=== PATIENT | female | born 1980 | race African-American/Black ===

== ENCOUNTER 2017-05-29 11:20 | Emergency (ER) | payer OTHER ==
[2017-05-29] MEDS ORDERED: Albuterol Sulfate 2.5 mg/0.5 ml Neb ONE (11:47)
[2017-05-29] MEDS ORDERED: Albuterol Sulfate 2.5 mg/3 ml Neb ONE (11:47)
[2017-05-29 11:59] LABS: pH, Arterial 7.42 (7.35-7.45)
[2017-05-29 12:00] LABS: Actual Bicarbonate (HCO3a) 26.9 mEq/L (22-26); Analyzer IN Cardio ER; Base Excess (BEa) 2.2 mEq/L (0 (+/-) 2.5); CO2 Tension 42.2 mmHg (35.0-45.0); Calcium, Ionized 1.2 mmol/L (1.12-1.30); Hematocrit-ABG 39.5 % (36.0-47.0); Hemoglobin (Hb) 11.8 g/dL (12.0-16.0); O2 Tension (PaO2) 79.8 mmHg (80.0-100.0); Puncture Site RRA
[2017-05-29 12:01] LABS: #Basophils 0.1 thou/uL (0.0-0.2); #Eosinphils 0.1 thou/uL (0.0-0.7); #Lymphocytes 1.4 thou/uL (1.20-3.40); #Monocytes 0.5 thou/uL (0.11-0.59); #Neutrophils 3.8 thou/uL (1.40-6.50); %Basophils 1.2 % (0.0-1.0); %Eosinophils 2.2 % (0.0-10.0); %Lymphocytes 23.5 % (21.0-51.0); %Monocytes 7.8 % (0.0-10.0); %Neutrophils 65.3 % (42.0-75.0); Hemoglobin 12.1 g/dL (12.0-16.0); Mean Corpuscular HGB CONC 31.3 g/dL (32.0-36.0); Mean Corpuscular Hemoglobin 25.2 pg (27.0-31.0); Mean Corpuscular Volume 80.5 fl (81.0-99.0); Mean Platelet Volume 9.1 fL (7.4-10.4); Platelet Count 231 thou/uL (130-400); RBC Distribution Width 14.2 % (11.5-14.5); Red Blood Cell (RBC) Count 4.81 mill/uL (4.20-5.40); White Blood Cell (WBC) Count 5.7 thou/uL (4.8-10.8)
[2017-05-29] MEDS ORDERED: Dexamethasone 4 mg/ml Vial ONE (12:10)
[2017-05-29] MEDS ORDERED: Magnesium Sulfate 2 GM/100 ML BAG ONE (12:10)
[2017-05-29] MEDS ORDERED: Ondansetron HCl/PF 4 MG/2 ML Vial ONE (12:10)
--- NOTE | 2017-05-29 12:23 | RAD ---
AP VIEW CHEST: Date: 05/29/17 HISTORY: 31-year-old with history of chest pain. FINDINGS: Comparison made to previous exam from 11/02/11. AP view of chest demonstrates some mild cardiomegaly. Mild pulmonary vascular congestion is seen. No evidence of effusions, pneumonia, or pneumothorax seen. IMPRESSION: Unremarkable AP view of chest. POS: [facility]
[2017-05-29 12:28] LABS: CKMB 1.2 ng/mL (0-6.6); Troponin I Less than 0.010 ng/mL (< 0.028)
[2017-05-29 12:29] LABS: ALT (SGPT) 28 U/L (8-55); AST (SGOT) 32 U/L (5-34); Alkaline Phosphatase 61 U/L (40-150); Anion Gap 13 mmol/L (10-20); BUN (Urea Nitrogen) 11 mg/dL (7.0-18.7); Bilirubin, Total 0.5 mg/dL (0.2-1.2); CK (CPK) 130 U/L (29-168); Calc. Creatinine Clearance 0 mL/min (70-130); Calcium 9.6 mg/dL (7.8-10.44); Carbon Dioxide 25 mmol/L (22-29); Chloride 102 mmol/L (98-107); Estimated GFR-MDRD Greater than 90; Globulin 3.8 g/dL (2.4-3.5); Glucose 144 mg/dL (70-105); Lipase 15 U/L (8-78); Potassium 4.2 mmol/L (3.5-5.1); Protein, Total 7.8 g/dL (6.0-8.3); Sodium 136 mmol/L (136-145)
[2017-05-29] MEDS ORDERED: Acetaminophen 500 MG TAB ONE (12:45)
[2017-05-29] MEDS ORDERED: Lorazepam 2 MG/ML VIAL ONE (13:22)
[2017-05-29 14:48] LABS: Bilirubin Negative (Negative); Blood, Urine Negative (Negative); Clarity CLOUDY (Clear); Glucose, Urine (Dipstick) Negative (Negative); Leukocyte Negative (Negative); Nitrite Negative (Negative); Protein, Urine (Dipstick) Negative (Neg-Trace); Specific Gravity, Urine 1.021 (1.002-1.036); pH, Urine 6.5 (5.0-9.0)
== END 2017-05-29 14:36 | disposition home or self-care (01) ==
LOC: ERS 11:20
DX: J45.901 Unspecified asthma with (acute) exacerbation (principal); E66.9 Obesity, unspecified; D50.9 Iron deficiency anemia, unspecified; Z79.899 Other long term (current) drug therapy
CPT/HCPCS: 71045; 80053; 81003; 82553; 82805; 83605; 83690; 83880; 84484; 85025; 85379; 87040; 87804; 93005; 94644; 96361; 96365; 96366; 96375; J1100; J1956; J2060; J2405; J3475; J7611; J7620

== ENCOUNTER 2017-09-13 15:33 | Emergency (ER) | payer SELFPAY | END 2017-09-13 16:05 | disposition home or self-care (01) | LOC: ERS 15:33 | DX: G56.03 Carpal tunnel syndrome, bilateral upper limbs (principal); D64.9 Anemia, unspecified; E61.1 Iron deficiency; E66.9 Obesity, unspecified; J45.909 Unspecified asthma, uncomplicated; Z79.899 Other long term (current) drug therapy | CPT/HCPCS: 99283 ==

== ENCOUNTER 2018-04-29 10:06 | Outpatient (CLI) | payer OTHER ==
--- NOTE | 2018-04-29 11:24 | RAD ---
2 VIEWS LUMBAR SPINE: Date: 04/29/18 HISTORY: Disability examination. COMPARISON: None. FINDINGS: Two views of the lumbar spine demonstrate five lumbar-type vertebral bodies. Vertebral body height is maintained. No malalignment or fracture. Disc space heights are preserved. IMPRESSION: Unremarkable lumbar spine 2 views. POS: [facility]
== END 2018-04-29 10:07 | disposition home or self-care (01) ==
LOC: BICRAD 10:06
PROVIDERS: ATTEND Internal Medicine
DX: Z02.71 Encounter for disability determination (principal)
CPT/HCPCS: 72100

== ENCOUNTER 2018-05-27 09:08 | Outpatient (CLI) | payer MEDICAID ==
--- NOTE | 2018-06-01 13:23 | MMO ---
Bilateral MAMMO Bilat Screen DDI. CLINICAL HISTORY: Patient is 38 years old and is seen for screening. The patient has no family history of breast cancer. The patient has no personal history of cancer. VIEWS: The views performed were: bilateral craniocaudal and bilateral mediolateral oblique. This study has been interpreted with the assistance of computer-aided detection. MAMMOGRAM FINDINGS: There are scattered fibroglandular densities. There are no suspicious masses, calcifications or areas of architectural distortion. IMPRESSION: THERE IS NO MAMMOGRAPHIC EVIDENCE OF MALIGNANCY. A ROUTINE FOLLOW-UP MAMMOGRAM IN 1 YEAR IS RECOMMENDED. ACR BI-RADS Category 1 - Negative MAMMOGRAPHY NOTE: 1. A negative mammogram report should not delay a biopsy if a dominant of clinically suspicious mass is present. 2. Approximately 10% to 15% of breast cancers are not detected by mammography. 3. Adenosis and dense breasts may obscure an underlying neoplasm.
== END 2018-05-27 09:09 | disposition home or self-care (01) ==
LOC: BICMAMMO 09:08
PROVIDERS: ATTEND Family Medicine
DX: Z12.31 Encounter for screening mammogram for malignant neoplasm of breast (principal)
CPT/HCPCS: 77067

== ENCOUNTER 2018-06-18 07:47 | Day surgery (SDC) | payer OTHER ==
[2018-06-17 10:08] VITALS: BMI 404.0
[2018-06-18] MEDS ORDERED: PROPOFOL 200 MG/20 ML VIAL ONE (16:07)
[2018-06-18] MEDS ORDERED: Lidocaine 1% PF 5 ML VIAL ONE (16:07)
--- NOTE | 2018-06-18 18:46 | OP ---
DATE OF PROCEDURE: 06/18/2018 PROCEDURES PERFORMED: EGD, colonoscopy. PREPROCEDURE DIAGNOSES: 1. Rectal bleeding with normal hemoglobin. 2. Slight change in bowel function. 3. Remote family history of colorectal cancer in a cousin and an aunt with polyps. 4. Indigestion with chest pain and regurgitation at times. POSTPROCEDURE DIAGNOSES: 1. EGD with LA grade A reflux esophagitis and small erosion of the GE junction. 2. Otherwise normal EGD. 3. Normal colonoscopy except for a very small internal hemorrhoids, bleeding likely rectal outlet. RECOMMENDATIONS: 1. Most important for this patient is weight loss. She is morbidly obese. I have given her referral to a dietitian. 2. Anti-reflux regimen. 3. Stop ranitidine and start omeprazole. 4. Consider repeat colonoscopy in 10 years for screening purposes. 5. Follow up with primary physician as previously scheduled. ANESTHESIA: TIVA. PROCEDURE IN DETAIL: The patient was informed of the risks, benefits, and possible complications of endoscopy including perforation, reaction to medication, and aspiration. Informed consent was obtained. The patient was brought to the endoscopy suite, where she was sedated in a gradual fashion. Once she was comfortable, a bite block was placed inside the orifice. The endoscope was advanced through the esophagus, stomach, and second and third portion of the duodenum and slowly removed. The esophagus was notable for LA grade reflux esophagitis and a small erosion of the GE junction was noted. There was no ulcers, masses, or De La Cruz's. There was no hiatal hernia. The stomach was entered and found to be normal in forward and retroflexed views. The duodenum was normal at third portion. The scope was removed. The patient was turned to the room and a rectal examination was performed. The endoscope was advanced to the anal canal through the colon to the cecum. The prep was excellent. There was good visualization of the mucosa. The scope was removed. There was no mass, lesions, AV malformations, polyps, or diverticula. Retroflexed views revealed small internal hemorrhoids. This is likely a source of bleeding. There was no active bleeding at this time or stigmata to indicate high risk of bleeding. The scope was removed. The patient was brought to recovery in stable condition. Job ID: [id number]
== END 2018-06-18 13:33 | disposition home or self-care (01) ==
LOC: SDC 07:47 → EEVIPCON 07:47 → SDC 13:33
PROVIDERS: ATTEND Internal Medicine Gastroenterology
PROC: 0DJD8ZZ Inspection of Lower Intestinal Tract, Via Natural or Artificial Opening Endoscopic (ICD-10-PCS; principal; 2018-06-18)
PROC: 0DJ08ZZ Inspection of Upper Intestinal Tract, Via Natural or Artificial Opening Endoscopic (ICD-10-PCS; principal; 2018-06-18)
DX: K64.8 Other hemorrhoids (principal); K21.0 Gastro-esophageal reflux disease with esophagitis; K25.9 Gastric ulcer, unspecified as acute or chronic, without hemorrhage or perforation; E11.9 Type 2 diabetes mellitus without complications; G47.30 Sleep apnea, unspecified; J45.909 Unspecified asthma, uncomplicated; E66.01 Morbid (severe) obesity due to excess calories; Z68.44 Body mass index [BMI] 60.0-69.9, adult; Z79.84 Long term (current) use of oral hypoglycemic drugs; Z79.899 Other long term (current) drug therapy; Z88.1 Allergy status to other antibiotic agents; Z88.5 Allergy status to narcotic agent
CPT/HCPCS: J2001; J2704

== ENCOUNTER 2018-07-07 13:12 | Outpatient (CLI) | payer OTHER ==
--- NOTE | 2018-07-07 13:26 | RAD ---
PA AND LATERAL VIEWS OF THE CHEST: HISTORY: Dyspnea. FINDINGS: Comparison is made with the exam of 05/29/2017. The heart size is normal. The lungs are expanded without focal areas of consolidation, pneumothorace s, or pleural effusions. No acute osseous abnormalities are seen. IMPRESSION: No radiographic evidence of acute cardiopulmonary process. POS: [facility]
== END 2018-07-07 13:13 | disposition home or self-care (01) ==
LOC: RAD 13:12
PROVIDERS: ATTEND Internal Medicine Pulmonary Disease
DX: R06.00 Dyspnea, unspecified (principal)
CPT/HCPCS: 71046

== ENCOUNTER 2018-07-07 19:30 | Outpatient (CLI) | payer MEDICAID | END 2018-07-07 19:31 | disposition home or self-care (01) | LOC: SLEEPLAB 19:30 | PROVIDERS: ATTEND Family Medicine | DX: G47.30 Sleep apnea, unspecified (principal); E66.9 Obesity, unspecified; E11.9 Type 2 diabetes mellitus without complications; I10 Essential (primary) hypertension | CPT/HCPCS: 95811 ==

== ENCOUNTER 2018-10-31 21:23 | Observation (INO) | payer OTHER ==
[2018-10-31 21:56] LABS: #Lymphocytes 0.8 thou/uL (1.20-3.40); #Monocytes 0.2 thou/uL (0.11-0.59); #Neutrophils 6.9 thou/uL (1.40-6.50); %Eosinophils 0.2 % (0.0-10.0); %Lymphocytes 9.6 % (21.0-51.0); %Monocytes 2.9 % (0.0-10.0); %Neutrophils 87.3 % (42.0-75.0); Hemoglobin 8.7 g/dL (12.0-16.0); Mean Corpuscular HGB CONC 31.3 g/dL (32.0-36.0); Mean Corpuscular Hemoglobin 24.4 pg (27.0-31.0); Mean Corpuscular Volume 77.9 fL (78.0-98.0); Platelet Count 255 thou/uL (130-400); Red Blood Cell (RBC) Count 3.55 mill/uL (4.20-5.40); White Blood Cell (WBC) Count 7.9 thou/uL (4.8-10.8)
[2018-10-31 22:12] LABS: ALT (SGPT) 20 U/L (8-55); AST (SGOT) 23 U/L (5-34); Albumin 3.8 g/dL (3.5-5.0); Alkaline Phosphatase 78 U/L (40-150); Anion Gap 17 mmol/L (10-20); BUN (Urea Nitrogen) 10 mg/dL (7.0-18.7); Bilirubin, Total 0.5 mg/dL (0.2-1.2); Calc. Creatinine Clearance 0 mL/min (70-130); Calcium 9.1 mg/dL (7.8-10.44); Carbon Dioxide 20 mmol/L (22-29); Chloride 103 mmol/L (98-107); Estimated GFR-MDRD 76; Globulin 3.8 g/dL (2.4-3.5); Glucose 211 mg/dL (70-105); Potassium 4.2 mmol/L (3.5-5.1); Protein, Total 7.6 g/dL (6.0-8.3); Sodium 136 mmol/L (136-145)
--- NOTE | 2018-10-31 22:16 | RAD ---
EXAM: Two views chest PROVIDED CLINICAL HISTORY: Dyspnea COMPARISON: 07/07/2018. FINDINGS: Cardiac silhouette and pulmonary vasculature are within normal limits. There is suggestion of mild i ncrease in interstitial markings. Element of mild pulmonary edema is a possibility. There is no consolidation or pleural fluid seen. No other interval change. The osseous structures have a normal a ppearance. IMPRESSION: Mild interstitial prominence which may be accentuated by the technique of the exam. However, an eleme nt of mild pulmonary edema is a possibility. Clinical correlation is suggested.
[2018-11-01 00:37] LABS: Pregnancy Test - Urine (BHCG) Negative (Negative); Pregu Control Background? CLEAR/WHITE (CLR/WHITE); Pregu Control Bar Appear? YES (CONTROL BAR)
[2018-11-01 01:37] LABS: Troponin I Less than 0.010 ng/mL (< 0.028)
[2018-11-01] MEDS ORDERED: Acetaminophen 325 MG TAB PO PRN (04:02)
[2018-11-01] MEDS ORDERED: Ondansetron PF 4 MG/2 ML Vial IVP PRN (04:02)
[2018-11-01] MEDS ORDERED: Ondansetron ODT 4 MG TAB SL PRN (04:02)
[2018-11-01 04:06] VITALS: BMI 74.1
[2018-11-01] MEDS ORDERED: Nitroglycerin 0.4 MG TAB (25 Tab Bottle) PO PRN (08:05)
--- NOTE | 2018-11-01 08:07 | CT ---
PRELIMINARY REPORT/[facility]/EMERGENCY AFTER HOURS PROCEDURE: EXAM: CT Angiography Chest With Contrast EXAM DATE/TIME: 11/01/2018 2:38 AM CLINICAL HISTORY: 38 years old, female; Dyspnea and shortness of breath; Patient HX: Er 16. 38f: PT C/O of SOB which elias s been gradually worsening with exacerbation starting yesterday. Denies cp, cough, fever. States that she feels like she felt like she was going to pass out after walking to the bathroom and that she fe els short of breath when walking. TECHNIQUE: Imaging protocol: Computed tomographic angiography images of the chest with intravenous contrast usin g CT angiography protocol. 3D rendering: MIP reconstructed images were created and reviewed. COMPARISON: No relevant prior studies available. FINDINGS: Pulmonary arteries: No pulmonary emboli. Aorta: Unremarkable. No aortic aneurysm. No aortic dissection. Lungs: Patchy groundglass opacities scattered throughout the lungs bilaterally, likely multifocal pne umonitis/pneumonia. Minimal bibasilar atelectasis. Pleural space: Unremarkable. No pneumothorax. No pleural effusion. Heart: Unremarkable. No cardiomegaly. No pericardial effusion. Mediastinum: Small-sized hiatal hernia. Lymph nodes: Unremarkable. No enlarged lymph nodes. Bones/joints: Unremarkable. No acute fracture. Soft tissues: Unremarkable. IMPRESSION: 1. No pulmonary emboli. 2. Patchy groundglass opacities scattered throughout the lungs bilaterally, likely multifocal pneumon itis/pneumonia. Thank you for allowing us to participate in the care of your patient. Dictated and Authenticated by: Ghassan Garner MD 11/01/2018 2:55 AM Central Time ([place] & [place]) FINAL REPORT CTA CHEST WITH 3D VOLUME RENDERING WITH CONTRAST: FINDINGS/IMPRESSION: Report is in agreement with the above-provided preliminary interpretation. 1. No evidence of acute pulmonary embolus. 2. Nonspecific patchy ground-glass opacity of the lungs bilaterally. This could be on the basis of edema, atypical pneumonia, or other inflammatory process. Recommend clinical correlation. POS: [place]
[2018-11-01] MEDS: Enoxaparin Sodium 40 MG/0.4 ML SYRINGE SC SCH (09:44)
[2018-11-01] MEDS ORDERED: PROVENTIL INHALER 6.7 G (200 INHALATIONS) INH PRN (14:16)
[2018-11-01] MEDS ORDERED: HumaLOG 300 UNITS/3 ML VIAL SC PRN (14:17)
[2018-11-01] MEDS ORDERED: Dextrose 50% Abboject 50 ML SYRINGE SLOW IVP PRN (14:17)
[2018-11-01] MEDS ORDERED: Dextrose 5% in Water 1,000 ML IV PRN (14:17)
[2018-11-01] MEDS ORDERED: Ipratropium Bromide 2.5 ml Neb NEB PRN (14:48)
[2018-11-01 15:35] LABS: Reticulocyte Count 3.7 % (0.5-1.5)
[2018-11-01 15:43] LABS: Hemoglobin A1c 6.2 % (4.0-6.0)
[2018-11-01 16:00] LABS: Iron 34 ug/dL (50-170); Iron Binding Capacity, Total 375 mcg/dL (265-497)
[2018-11-01] MEDS ORDERED: Furosemide 40 MG/4 ML VIAL SLOW IVP SCH (16:15)
[2018-11-01] MEDS ORDERED: Metoprolol Tartrate 25 MG TAB PO SCH (16:45)
[2018-11-01] MEDS ORDERED: metFORMIN 500 MG TAB PO PRN (17:00)
[2018-11-01] MEDS ORDERED: SYMBICORT INH SCH (21:00)
[2018-11-01] MEDS ORDERED: Famotidine 20 MG TAB PO SCH ×2 (21:00→23:30)
[2018-11-01] MEDS: Metoprolol Tartrate 25 MG TAB PO SCH (21:11)
--- NOTE | 2018-11-01 22:13 | HP ---
CHIEF COMPLAINT: Shortness of breath, palpitations. HISTORY OF PRESENT ILLNESS: The patient is a 38-year-old female with severe obesity and sleep apnea, who presents to the hospital with complaints of chest pain and palpitations and shortness of breath x2 days. The patient states that on Friday when she was walking from the store to the car, she got very short of breath to the point that she had to stop and catch her breath. She also felt her heart beat was really fast. The patient at this time rested and her shortness of breath improved and she went on her ways. However, yesterday, she had similar symptoms which concerned her, so she came into the ER for further evaluation. The patient during the first episode felt that she possibly was going to pass out, however, never did pass out. She denies any recent fevers or chills, any nausea, vomiting or diarrhea, any chest pain or chest pressure. She did complain of some ankle swelling at times. She has been started on a BiPAP about 3 weeks ago per her. The patient also states that she takes metformin as needed when her sugars are of certain numbers. PAST MEDICAL HISTORY: As of the following. She has a history of diabetes, asthma, non-insulin diabetic type 2, sleep apnea. PAST SURGICAL HISTORY: She has had a and appendectomy. ALLERGIES: SHE IS ALLERGIC TO ULTRAM AND MACROBID. MEDICATIONS: She takes only metformin as needed. SOCIAL HISTORY: She drinks occasional alcohol. No history of smoking, drug use. She is a full code and lives with her . REVIEW OF SYSTEMS: All negative except for the ones mentioned above in the HPI. FAMILY HISTORY: Some history of heart disease and cancer. LABORATORY RESULTS: WBCs of 7.9, hemoglobin of 8.7, MCV of 77.9, platelets of 255, reticulocyte count of 3.7. Chemistry; sodium of 136, potassium 4.2, BUN 10, creatinine 0.98, glucose of 211. She did have a CTA which did not indicate any acute pulmonary embolism, however, did have some nonspecific patchy ground-glass opacity in her lungs bilaterally. PHYSICAL EXAMINATION: VITAL SIGNS: Temperature of 98.1, 96, 20, 97% on room air, 177/93. GENERAL: She is awake, alert, and oriented x3. HEENT: Normocephalic, atraumatic. No lymphadenopathy noted. Pupils are equal and reactive to light. CV: S1 and S2 present. No murmurs, rubs, or gallops. LUNGS: Clear to auscultation. No rhonchi or wheezes noted. ABDOMEN: Soft and obese. Bowel sounds are present x2. EXTREMITIES: No edema. Pedal pulses are present x2. NEUROVASCULAR: No focal deficits noted. SKIN: No cuts, lesions or bruises noted. ASSESSMENT AND PLAN: The patient is a 38-year-old female who presents to the hospital with shortness of breath and palpitations. 1. Shortness of breath, possibly cardiac versus bronchitis versus pneumonia. I will order an echocardiogram. Initially, I did want to order a stress test on her. However, given her weight, she is unable to undergo a stress test. She did have a CTA, which was negative for pulmonary embolism. I will go ahead and treat her prophylactically with doxycycline and will also give her a dose of Lasix. I will check a BNP on her. She did get tachycardic upon ambulation. However, she never dropped her oxygen saturations. I will wait for the echo and maybe put her on some medications for her tachycardia. I am not sure if her tachycardia is secondary to some volume overload versus maybe infectious etiology in her lungs. If I have to, I will also consult Cardiology. 2. Obesity. I did discuss weight loss. The patient understands that and she wants to make some changes in her life. 3. Diabetes. I explained to her that metformin cannot be taken as needed. It has to be taken all the time and I will check a hemoglobin A1c on her. 4. Elevated blood pressure. The patient states that she has never really been diagnosed with hypertension. However, upon looking at her blood pressure, she has been running a little bit high on the higher side. This could be just due to anxiety of being in the hospital. However, I will continue to monitor. 5. Deep venous thrombosis prophylaxis. I will put the patient on some SCDs and Lovenox. Job ID: [id number]
[2018-11-01] MEDS ORDERED: Montelukast Sodium 4 mg Chewable Tablet PO SCH (23:30)
[2018-11-01] MEDS ORDERED: Brimonidine Tartrate 0.2% Ophth Soln 5 ml Bottle EA EYE SCH (23:30)
[2018-11-01] MEDS: tiZANidine HCl 4 MG TAB PO PRN (23:42)
[2018-11-02] MEDS: Mometasone/Formoterol 120 PUFF INHALER INH SCH ×3 (06:44→19:05)
[2018-11-02] MEDS: Enoxaparin Sodium 40 MG/0.4 ML SYRINGE SC SCH (09:03)
[2018-11-02] MEDS: Metoprolol Tartrate 25 MG TAB PO SCH ×2 (09:03→20:12)
[2018-11-02] MEDS: Brimonidine Tartrate 0.2% Ophth Soln 5 ml Bottle EA EYE SCH ×3 (09:04→20:13)
[2018-11-02] MEDS ORDERED: IRON SUCROSE COMPLEX 100 MG/5 ML SLOW IVP SCH (09:30)
[2018-11-02] MEDS ORDERED: Furosemide 40 MG/4 ML VIAL SLOW IVP SCH ×2 (14:42→14:45)
--- NOTE | 2018-11-02 14:46 | PDOC.HOSPP ---
- Subjective Encounter Date: 11/02/18 Encounter Time: 14:43 Subjective: pt up in bed feels sob. she feels better than yestarday - Objective Vital Signs & Weight: Vital Signs (12 hours) Temp Pulse Resp BP BP Pulse Ox 11/02/18 11:50 98.9 F 81 22 H 136/84 98 11/02/18 08:00 98.2 F 83 22 H 126/77 95 11/02/18 06:44 82 16 94 L 11/02/18 03:19 98.6 F 85 22 H 162/73 H 95 Weight Weight 432 lb I&O: 11/01/18 11/02/18 11/03/18 06:59 06:59 06:59 Intake Total 1130 Balance 1130 Result Diagrams: 10/31/18 21:52 10/31/18 21:52 Additional Labs: Accuchecks 11/02/18 11/02/18 11/01/18 10:38 06:10 20:25 POC Glucose 105 124 H 123 H 11/01/18 17:29 POC Glucose 105 ROS - Review of Systems Respiratory: denies: cough, dry, shortness of breath, hemoptysis, SOB with excertion, pleuritic pain, sputum, wheezing, other Cardiovascular: denies: chest pain, palpitations, orthopnea, paroxysmal noc. dyspnea, edema, light headedness, other Gastrointestinal: denies: nausea, vomitting, abdominal pain, diarrhea, constipation, melena, hematochezia, other - Medication Medications: Active Medications Generic Name Dose Route Start Last Admin Trade Name Freq PRN Reason Stop Dose Admin Albuterol Sulfate 2 puff 11/01/18 14:16 11/02/18 00:01 Proventil Hfa INH 2 puff BID PRN Administration SOB &/or Wheezing Brimonidine Tartrate 1 drop 11/02/18 09:00 11/02/18 11:34 Alphagan 0.2% Ophth Soln EA EYE 1 drop Q12HR MATI Administration Enoxaparin Sodium 40 mg 11/01/18 09:00 11/02/18 09:03 Lovenox SC 40 mg 0900 MATI Administration Famotidine 20 mg 11/01/18 21:00 11/01/18 21:13 Pepcid PO 20 mg HS MATI Administration Doxycycline Hyclate 100 mg/ 100 mls @ 100 mls/hr 11/01/18 15:00 11/02/18 03: 07 Sodium Chloride IVPB 100 mls 0300,1500 MATI Administration Metformin HCl 500 mg 11/01/18 17:00 11/01/18 21:13 Glucophage PO 500 mg QPM-WM PRN Administration Hyperglycemia Metoprolol Tartrate 12.5 mg 11/01/18 21:00 11/02/18 09:03 Lopressor PO 12.5 mg BID MATI Administration Mometasone Furoate/Formoterol Fumar 2 puff 11/02/18 06:30 11/02/18 06:44 Dulera 200 Mcg/5 Mcg Inhaler INH 2 puff BID-RT MATI Administration Sodium Chloride 10 ml 11/01/18 09:00 11/02/18 09:03 Flush - Normal Saline IVF 10 ml Q12HR MATI Administration Tizanidine HCl 4 mg 11/01/18 14:16 11/01/18 23:42 Zanaflex PO 4 mg TID PRN Administration Muscle Spasm - Exam Neck: negative: supple, symmetric, no JVD, no thyromegaly, no lymphadenopathy, no carotid bruit, JVD Heart: negative: RRR, no murmur, no gallops, no rubs, normal peripheral pulses, irregular, diminshed peripheral pulses, murmur present, II/IV, III/IV Respiratory: negative: CTAB, no wheezes, no rales, no ronchi, normal chest expansion, no tachypnea, normal percussion, rales, rhonchi, tachypneic, wheezes Gastrointestinal: negative: soft, non-tender, non-distended, normal bowel sounds , no palpable masses, no hepatomegaly, no splenomegaly, no bruit, no guarding, no rigidity, tender to palpation, distended, diminished bowl sounds, voluntary guarding Hosp A/P (1) SOB (shortness of breath) Code(s): R06.02 - SHORTNESS OF BREATH Status: Acute (2) Obesity Code(s): E66.9 - OBESITY, UNSPECIFIED Status: Acute (3) Iron deficiency Code(s): E61.1 - IRON DEFICIENCY Status: Acute (4) Sleep apnea Code(s): G47.30 - SLEEP APNEA, UNSPECIFIED Status: Acute - Plan Not sure if her sob is due to volume overload vs pna vs multifactoral. i have put her on abx and lasix. her bnp and tsh normal. echo no acute process. cta negative for pe. she is anemic but this is not new. she has had a upper and lower done in 06/26. she is tachycardia with ambulation.
[2018-11-02] MEDS: tiZANidine HCl 4 MG TAB PO PRN (20:18)
[2018-11-02] MEDS ORDERED: Montelukast Sodium 4 mg Chewable Tablet PO SCH (21:00)
--- NOTE | 2018-11-03 01:10 | CON ---
DATE OF CONSULTATION: HISTORY: Gladys Live is a 38-year-old morbidly obese female, admitted with shortness of breath and chest discomfort. In June 2018, she had rectal bleeding, but was not anemic. She underwent EGD and colonoscopy by Dr. Doty. This revealed reflux esophagitis and small erosion at the GE junction. She also on colonoscopy had small internal hemorrhoids and bleeding was felt to be likely from the rectal outlet. It was recommended that she stop ranitidine and go on omeprazole for anti-reflux regimen. That medication is not amongst her medications at the time of admission. On October 30, she was walking to her car from a store, became very short of breath, had to stop to catch her breath. She also felt her heart beating rapidly and had chest pressure. She is uncertain how long that lasted. The next day, she had the same symptom and decided to come to the emergency room. She has been found to be anemic and tachycardic when she tries to get up and walk. Cardiac enzymes have been normal. PAST MEDICAL HISTORY: 1. Diabetes. 2. Asthma. 3. Obstructive sleep apnea, recently started BiPAP 3 weeks ago. PAST SURGICAL HISTORY: and appendectomy. MEDICATIONS: 1. Metformin 100 mg p.r.n. 2. Symbicort one puff b.i.d. 3. Albuterol 2 puffs b.i.d. p.r.n. 4. Ergocalciferol one tablet q.7 days. 5. Singulair 8 mg at bedtime. 6. Zanaflex 4 mg p.r.n. 7. Zantac 150 at bedtime, unknown last dose. ALLERGIES: ULTRAM AND MACROBID. SOCIAL HISTORY: She occasionally drinks alcohol. She does not smoke. REVIEW OF SYSTEMS: Unremarkable except as noted above. She states that she has very irregular periods and at times they are heavy. Last period was 2 months ago. PHYSICAL EXAMINATION: VITAL SIGNS: Blood pressure 172/94, 136/84; pulse 82. When she gets up to walk , her heart rate goes up to 140 to 150, sinus tachycardia. HEENT: PERRL. NECK: Supple. CHEST: Clear. CARDIAC: S1 and S2 normal without any S3, S4, or murmurs. ABDOMEN: Morbidly obese. Normal bowel sounds. No tenderness. EXTREMITIES: Reveal no clubbing, cyanosis, or edema.. NEUROLOGIC: Grossly intact. SKIN: Warm and dry. LABORATORY DATA: Stool for occult blood x1 is negative. Hemoglobin 8.7, hematocrit 27.7, white count 7900. Retic count 3.7, which is high. Immature retic fraction 0.537, which is high. D-dimer less than 0.27. Iron 34, TIBC 375, percent saturation 9. Cardiac enzymes x3 are normal. Sodium 136, potassium 4.6, chloride 103, carbon dioxide 20, BUN 10, and creatinine 0.98. IMPRESSION: 1. Exertional shortness of breath and chest pressure, probably related to her anemia. 2. GI workup in June 2018 when her CBC was normal, but she had some rectal bleeding. It was found that she had gastroesophageal erosion and was recommended that she be placed on proton pump inhibitor. Stool guaiacs have been negative x1. 3. Iron-deficiency anemia. She has received intravenous iron. 4. Diabetes. 5. Asthma. 6. Morbid obesity with weight of 432 pounds. It is of note that in June 2018, her weight was 365 and gained 67 pounds over the last 4 months. PLAN: She has been gently diuresed and placed on low-dose beta kevin. The beta kevin dose may need to be increased. She did receive intravenous iron for her iron deficiency anemia. I also would recommend placing her on a proton pump inhibitor as recommended by Dr. Doty after his EGD. From a Cardiology perspective, it will be difficult to gather any more information. Her weight is too great to consider a Lexiscan Cardiolite test with weight limit on the table of 350 pounds. Consideration could be given to cardiac catheterization, but she is a little above the weight limit for the table and at the present time, I do not have any direct evidence that she has coronary artery disease. Even if it was known that she has coronary artery disease, she is not a candidate for any type of coronary intervention, i.e., stent placement or bypass surgery with iron-deficiency anemia until that is corrected and exact cause is known. She does have somewhat heavy periods, but states she has not had one in 2 months. We will follow the patient with you. Job ID: [id number] [facility]
[2018-11-03] MEDS: Mometasone/Formoterol 120 PUFF INHALER INH SCH ×2 (07:24→17:57)
[2018-11-03] MEDS ORDERED: Iron Sucrose Complex 200 MG in Sodium Chloride 0.9% 250 ML 250 ML IVPB SCH ×2 (08:00→15:30)
[2018-11-03] MEDS: Brimonidine Tartrate 0.2% Ophth Soln 5 ml Bottle EA EYE SCH (08:36)
[2018-11-03] MEDS: Metoprolol Tartrate 25 MG TAB PO SCH (08:37)
[2018-11-03] MEDS: Enoxaparin Sodium 40 MG/0.4 ML SYRINGE SC SCH (08:43)
[2018-11-03] MEDS ORDERED: Furosemide 40 MG/4 ML VIAL SLOW IVP SCH (09:00)
[2018-11-03 12:32] VITALS: TEMP 98.7
--- NOTE | 2018-11-03 15:03 | PDOC.HOSPP ---
- Subjective Encounter Date: 11/03/18 Encounter Time: 15:01 Subjective: Ms. Live was seen today in follow-up of Shortness of breath. She continues to have some symptoms of dyspnea on exertion. She denies any chest pain. - Objective Vital Signs & Weight: Vital Signs (12 hours) Temp Pulse Resp BP BP Pulse Ox 11/03/18 12:02 98.7 F 76 20 116/66 96 11/03/18 07:44 98.1 F 83 20 114/61 96 11/03/18 07:30 96 11/03/18 04:05 97.9 F 80 18 118/61 96 Weight Weight 432 lb I&O: 11/02/18 11/03/18 11/04/18 06:59 06:59 06:59 Intake Total 1130 1300 Output Total 400 Balance 1130 900 Result Diagrams: 10/31/18 21:52 10/31/18 21:52 Hospitalist ROS - Medication Medications: Active Medications Generic Name Dose Route Start Last Admin Trade Name Freq PRN Reason Stop Dose Admin Albuterol Sulfate 2 puff 11/01/18 14:16 11/02/18 00:01 Proventil Hfa INH 2 puff BID PRN Administration SOB &/or Wheezing Brimonidine Tartrate 1 drop 11/02/18 09:00 11/03/18 08:36 Alphagan 0.2% Ophth Soln EA EYE 1 drop Q12HR MATI Administration Enoxaparin Sodium 40 mg 11/01/18 09:00 11/03/18 08:43 Lovenox SC 40 mg 0900 MATI Administration Furosemide 40 mg 11/03/18 09:00 11/03/18 08:36 Lasix SLOW IVP 40 mg DAILY MATI Administration Doxycycline Hyclate 100 mg/ 100 mls @ 100 mls/hr 11/01/18 15:00 11/03/18 14: 35 Sodium Chloride IVPB 100 mls 0300,1500 MATI Administration Metformin HCl 500 mg 11/01/18 17:00 11/01/18 21:13 Glucophage PO 500 mg QPM-WM PRN Administration Hyperglycemia Metoprolol Tartrate 12.5 mg 11/01/18 21:00 11/03/18 08:37 Lopressor PO 12.5 mg BID MATI Administration Mometasone Furoate/Formoterol Fumar 2 puff 11/02/18 06:30 11/03/18 07:24 Dulera 200 Mcg/5 Mcg Inhaler INH 2 puff BID-RT MATI Administration Montelukast Sodium 8 mg 11/02/18 21:00 11/02/18 20:12 Singulair Chewable PO 8 mg HS MATI Administration Pantoprazole Sodium 40 mg 11/02/18 21:00 11/03/18 08:37 Protonix PO 40 mg BID MATI Administration Sodium Chloride 10 ml 11/01/18 09:00 11/03/18 14:36 Flush - Normal Saline IVF 10 ml Q12HR MATI Administration Tizanidine HCl 4 mg 11/01/18 14:16 11/02/18 20:18 Zanaflex PO 4 mg TID PRN Administration Muscle Spasm - Exam Eye: PERRL, anicteric sclera Heart: RRR, no murmur, no gallops, no rubs, normal peripheral pulses Respiratory: CTAB (Distant heart sounds), no wheezes, no rales, no ronchi, normal chest expansion Gastrointestinal: soft, non-tender, non-distended, normal bowel sounds Extremities: no cyanosis, no clubbing, no edema Hosp A/P (1) Iron deficiency Code(s): E61.1 - IRON DEFICIENCY Status: Acute (2) SOB (shortness of breath) Code(s): R06.02 - SHORTNESS OF BREATH Status: Acute (3) Morbid obesity with BMI of 70 and over, adult Code(s): E66.01 - MORBID (SEVERE) OBESITY DUE TO EXCESS CALORIES; Z68.45 - BODY MASS INDEX (BMI) 70 OR GREATER, ADULT Status: Chronic (4) Diabetes mellitus type 2 in obese Code(s): E11.69 - TYPE 2 DIABETES MELLITUS WITH OTHER SPECIFIED COMPLICATION; E66.9 - OBESITY, UNSPECIFIED Status: Chronic - Plan * Patient is clinically stable * Dyspnea is likely from there severe anemia, and bronchitis, combined with her excessive weight. * Life threatening Obesity- will consult Vehicle [facility] Equipment [facility] , and I have offered brief counseling * She can be discharged home after the iron infusion
[2018-11-03 15:57] VITALS: BP 169/86
--- NOTE | 2018-11-03 21:52 | DIS ---
DATE OF ADMISSION: 11/01/2018 DATE OF DISCHARGE: 11/03/2018 DISCHARGE DISPOSITION: Home. PRIMARY DISCHARGE DIAGNOSES: 1. Dyspnea on exertion. 2. Symptomatic anemia due to iron deficiency anemia. 3. Morbid obesity. The patient has a BMI of 74.2. She is 5 feet 4 inches, 432 pounds. 4. Acute on chronic bronchitis. 5. Diabetes mellitus type 2. DISCHARGE MEDICATIONS: Include: 1. Lopressor 12.5 mg twice daily. 2. Doxycycline 100 mg twice a day. 3. Zantac 150 mg at bedtime. 4. Zanaflex 4 mg t.i.d. as needed. 5. Symbicort one puff twice daily. 6. Singulair 8 mg daily. 7. Metformin 750 mg extended release daily. 8. Drisdol 50,000 units one capsule every 7 days. 9. Alphagan 0.2% one drop in each eye q.12. 10. ProAir inhaler 2 puffs twice daily. CODE STATUS: Full code. ALLERGIES: TO NITROFURANTOIN AND TRAMADOL. PROCEDURES DONE DURING THE ADMISSION: The patient had a CT angiogram of the chest. There was no evidence of PE. There was some nonspecific patchy ground-glass opacities in both lungs. HOSPITAL COURSE: Ms. Live is a pleasant 38-year-old female, who presented to the emergency room complaining of shortness of breath especially on exertion. It was noted that she was anemic with a hemoglobin of 8.7 and low iron and relatively low ferritin levels. She does have a history of heavy menstrual cycles. She had a CT angiogram of the chest which was negative for PE and it was felt that the shortness of breath is likely multifactorial with regard to the symptomatic anemia, her excessive weight, as well as mild bronchitis. She was given a dose of IV iron during her hospital stay and also treated for the bronchitis with antibiotics, as well as neb treatments and long-acting beta-agonist. She did improve somewhat and was able to be discharged home. She was instructed on weight loss diet and had a nutrition or dietitian consult. She is subsequently being discharged home today to have close outpatient followup within 1 to 2 weeks. Job ID: [id number]
== END 2018-11-03 20:03 | disposition home or self-care (01) ==
LOC: ERS 21:23 → 2SW 11-01 04:02
PROVIDERS: ADMIT Hospitalist; ATTEND Hospitalist
DX: R06.09 Other forms of dyspnea (principal); J45.909 Unspecified asthma, uncomplicated; E11.9 Type 2 diabetes mellitus without complications; R03.0 Elevated blood-pressure reading, without diagnosis of hypertension; D50.9 Iron deficiency anemia, unspecified; G47.33 Obstructive sleep apnea (adult) (pediatric); J20.9 Acute bronchitis, unspecified; J42 Unspecified chronic bronchitis; E66.01 Morbid (severe) obesity due to excess calories; Z68.45 Body mass index [BMI] 70 or greater, adult; Z79.899 Other long term (current) drug therapy; Z88.1 Allergy status to other antibiotic agents; Z88.5 Allergy status to narcotic agent; Z99.89 Dependence on other enabling machines and devices
CPT/HCPCS: 36415; 36416; 71046; 71275; 80053; 81025; 82274; 82728; 83036; 83540; 83550; 83880; 84443; 84484; 85025; 85046; 85652; 86140; 93005; 93306; 94640; 94660; 94760; 96365; 96366; 96367; 96372; 96375; 96376; G0378; J1650; J1756; J1940; J3490; J7050; J7620

== ENCOUNTER 2019-04-15 07:19 | Day surgery (SDC) | payer OTHER ==
[2019-04-14 09:37] VITALS: BMI 72.1
[2019-04-15 08:39] LABS: #Eosinphils 0.1 thou/uL (0.0-0.7); #Lymphocytes 1.7 thou/uL (1.20-3.40); #Monocytes 0.5 thou/uL (0.11-0.59); #Neutrophils 3.6 thou/uL (1.40-6.50); %Basophils 0.7 % (0.0-1.0); %Eosinophils 1.8 % (0.0-10.0); %Lymphocytes 29.2 % (21.0-51.0); %Monocytes 7.7 % (0.0-10.0); %Neutrophils 60.7 % (42.0-75.0); Hemoglobin 11.6 g/dL (12.0-16.0); Mean Corpuscular HGB CONC 31.4 g/dL (32.0-36.0); Mean Corpuscular Hemoglobin 26.1 pg (27.0-31.0); Mean Platelet Volume 9.5 fL (7.4-10.4); Platelet Count 205 thou/uL (130-400); RBC Distribution Width 14.3 % (11.5-14.5); Red Blood Cell (RBC) Count 4.44 mill/uL (4.20-5.40); White Blood Cell (WBC) Count 5.9 thou/uL (4.8-10.8)
[2019-04-15] MEDS ORDERED: Lidocaine 1% w/Epinephrine 1:100K 20 ML VIAL ONE (09:43)
[2019-04-15] MEDS ORDERED: Fentanyl 100 MCG/2 ML VIAL ONE (09:45)
[2019-04-15] MEDS ORDERED: Midazolam HCl 2 mg/2 ml Vial ONE (09:45)
[2019-04-15] MEDS ORDERED: Propofol 500 MG/50 ML VIAL ONE (09:45)
[2019-04-15] MEDS ORDERED: Ondansetron PF 4 MG/2 ML Vial ONE (11:15)
--- NOTE | 2019-04-15 11:24 | OP ---
DATE OF PROCEDURE: 04/15/2019 PREOPERATIVE DIAGNOSIS: Left carpal tunnel syndrome. POSTOPERATIVE DIAGNOSIS: Left carpal tunnel syndrome. PROCEDURE PERFORMED: Left open carpal tunnel release. MEMBERSHIP SALES MANAGER: None. ANESTHESIOLOGIST: Maria Teresa Noland MD ANESTHESIA: The patient received a TIVA with 8 mL of lidocaine 1% with epinephrine. ESTIMATED BLOOD LOSS: Less than 10 mL. TOURNIQUET TIME: 5 minutes at 250 mmHg. ANTIBIOTICS: Ancef 2 g. COMPLICATIONS: None. HISTORY OF PRESENT ILLNESS: Calos is a pleasant 39-year-old female with bilateral carpal tunnel syndrome, left side she decided to have release. The patient is morbidly obese. I discussed the risks and benefits of the surgery to include, pain, scar, bleeding, infection, need for further surgery, damage to nerve, and loss of life or limb. She understood these increased risk because of morbid obesity. She elected to proceed. DESCRIPTION OF PROCEDURE: Time-out was performed designating the patient's left upper extremity as the operative site based on site, consents, and marking. After time-out, the patient's left upper extremity was prepped and draped in sterile fashion. Tourniquet was brought up and left for 5 minutes. We made an incision in the patient's flexor crease. I had injected about 6 mL of local just to give her pain control. I dissected down through the skin to the fat, came down through the palmar fascia, dissected through the transverse carpal ligament, completely released the nerve for complete release, ensured proximally and distally it had been released. Tourniquet was brought down after 5 minutes, controlled bleeding, closed with 4-0 nylon. The patient will be placed in a soft tissue dressing and remove it in about [address] a Velcro wrist splint over to protect herself. Follow up with me in 10 to 14 days to have sutures removed. Job ID: [id number] [facility]
== END 2019-04-15 11:53 | disposition home or self-care (01) ==
LOC: SDC 07:19
PROVIDERS: ATTEND Orthopaedic Surgery
PROC: 01N50ZZ Release Median Nerve, Open Approach (ICD-10-PCS; principal; 2019-04-15)
DX: G56.03 Carpal tunnel syndrome, bilateral upper limbs (principal); J45.909 Unspecified asthma, uncomplicated; M65.88 Other synovitis and tenosynovitis, other site; E66.01 Morbid (severe) obesity due to excess calories; Z68.45 Body mass index [BMI] 70 or greater, adult; Z79.899 Other long term (current) drug therapy; Z88.1 Allergy status to other antibiotic agents; Z88.5 Allergy status to narcotic agent
CPT/HCPCS: 85025; 93005; 93010; J0690; J2250; J2405; J2704; J3010

== ENCOUNTER 2020-08-14 19:30 | Outpatient (CLI) | payer MEDICARE | END 2020-08-14 19:31 | disposition home or self-care (01) | LOC: SLEEPLAB 19:30 | PROVIDERS: ATTEND Family Medicine | DX: G47.33 Obstructive sleep apnea (adult) (pediatric) (principal); G47.9 Sleep disorder, unspecified; G47.10 Hypersomnia, unspecified; R06.89 Other abnormalities of breathing; E66.9 Obesity, unspecified; K21.9 Gastro-esophageal reflux disease without esophagitis; E11.9 Type 2 diabetes mellitus without complications | CPT/HCPCS: 95811 ==

== ENCOUNTER 2023-05-22 07:16 | Day surgery (SDC) | payer OTHER, MEDICAID ==
[2023-05-13 11:28] VITALS: BMI 71.2
[2023-05-22] MEDS ORDERED: PROPOFOL 40 ML ONE (08:54)
[2023-05-22] MEDS ORDERED: Lidocaine 1% PF 5 ML VIAL ONE (09:12)
[2023-05-22] MEDS ORDERED: Glycopyrrolate 0.2 MG/ML 5 ML SYRINGE ONE (09:27)
[2023-05-22] MEDS ORDERED: PROPOFOL 20 ML ONE (09:52)
== END 2023-05-22 10:50 | disposition home or self-care (01) ==
LOC: SDC 07:16
PROVIDERS: ATTEND Internal Medicine Gastroenterology
PROC: 0DJD8ZZ Inspection of Lower Intestinal Tract, Via Natural or Artificial Opening Endoscopic (ICD-10-PCS; principal; 2023-05-22)
DX: K64.8 Other hemorrhoids (principal); K62.5 Hemorrhage of anus and rectum; C54.1 Malignant neoplasm of endometrium; J45.909 Unspecified asthma, uncomplicated; E11.9 Type 2 diabetes mellitus without complications; E66.01 Morbid (severe) obesity due to excess calories; Z68.45 Body mass index [BMI] 70 or greater, adult; Z90.710 Acquired absence of both cervix and uterus; Z79.82 Long term (current) use of aspirin; Z79.84 Long term (current) use of oral hypoglycemic drugs; Z79.899 Other long term (current) drug therapy; Z88.1 Allergy status to other antibiotic agents; Z88.5 Allergy status to narcotic agent
CPT/HCPCS: J2704